=== PATIENT | female | born 1980 | race African-American/Black ===

== ENCOUNTER 2017-10-04 09:54 | Emergency (ER) | payer MEDICAID ==
[~2017-10-04] VITALS: Ht 149.9 cm; Wt 102.3 kg
[~2017-10-04 09:54] MED LIST: CHLO25CA10 PO; CYCL-1 PO; NAPR500T4 PO; ONDA4TAB6 PO
[2017-10-04 12:00] VITALS: BP 143/81
== END 2017-10-04 12:02 | disposition home or self-care (01) ==
LOC: ER 09:55
DX: M25.562 Pain in left knee (principal); F12.10 Cannabis abuse, uncomplicated; F15.10 Other stimulant abuse, uncomplicated
CPT/HCPCS: 93971; 99284

== ENCOUNTER 2017-11-03 00:22 | Emergency (ER) | payer MEDICAID ==
[~2017-11-03] VITALS: Ht 149.9 cm; Wt 103.8 kg
[2017-11-03 01:23] LABS: CLARITY,URINE CLEAR (Clear); COLOR,URINE YELLOW (Yellow); GLUCOSE, URINE NEGATIVE (Neg); KETONES,URINE NEGATIVE (Neg); LEUKOCYTE ESTERASE ,URINE NEGATIVE (Neg); NITRITES, URINE NEGATIVE (Neg); OCCULT BLOOD,URINE SMALL (Neg); PROTEIN,URINE NEGATIVE (Neg); UROBILINOGEN,URINE 0.2 E.U/dL (0.2-1.0)
[2017-11-03] MEDS ORDERED: IBUP-1985 PO (01:23)
[2017-11-03 01:24] LABS: URINE HCG NEGATIVE (NEG)
[2017-11-03 01:25] LABS: UA COLLECTION TYPE VOIDED
[2017-11-03] MEDS ORDERED: ibuprofen 200mg tablet PO ONE (01:30)
[2017-11-03 01:31] LABS: BACTERIA,URINE FEW /HPF (Neg); MUCUS STRANDS FEW /LPF (Neg); SQUAMOUS EPITHELIAL CELL,UR FEW /LPF (FEW); WBC,URINE 0-4 /HPF (0-4)
[2017-11-03 01:47] VITALS: BP 108/63
== END 2017-11-03 01:48 | disposition home or self-care (01) ==
LOC: ER 00:22
DX: R07.89 Other chest pain (principal); R10.84 Generalized abdominal pain; F17.200 Nicotine dependence, unspecified, uncomplicated; F12.10 Cannabis abuse, uncomplicated; F15.10 Other stimulant abuse, uncomplicated; Z87.442 Personal history of urinary calculi; Z56.0 Unemployment, unspecified; Z98.890 Other specified postprocedural states
CPT/HCPCS: 71046; 81001; 81025; 93005; 99285

== ENCOUNTER 2021-06-06 21:12 | Emergency (ER) | payer MEDICAID ==
[~2021-06-06] VITALS: Ht 149.9 cm; Wt 79.5 kg
[~2021-06-06 21:12] MED LIST changes: +IBUP-1985 PO; +NAPR-996 PO; -NAPR500T4 PO
[2021-06-06 21:35] VITALS: BP 129/84
[2021-06-06 22:07] LABS: URINE HCG NEGATIVE (NEG)
[2021-06-06 22:14] LABS: CLARITY,URINE Cloudy (Clear); COLOR,URINE DARK YELLOW (Yellow); GLUCOSE, URINE NEGATIVE (Neg); KETONES,URINE NEGATIVE (Neg); LEUKOCYTE ESTERASE ,URINE SMALL (Neg); NITRITES, URINE NEGATIVE (Neg); OCCULT BLOOD,URINE MODERATE (Neg); PROTEIN,URINE NEGATIVE (Neg); UA COLLECTION TYPE CLN CATCH MIDSTREAM; UROBILINOGEN,URINE 0.2 E.U/dL (0.2-1.0)
[2021-06-06] MEDS ORDERED: normal saline 1000ML IV soln IVB ONE (22:40)
[2021-06-06] MEDS ORDERED: ondansetron/PF 4mg/2ml inj IV ONE (22:40)
[2021-06-06] MEDS ORDERED: ketorolac trometh. 30mg/ml inj. IV ONE (22:40)
[2021-06-06 22:48] LABS: BACTERIA,URINE 1+ /HPF (Neg); MUCUS STRANDS MANY /LPF (Neg); SQUAMOUS EPITHELIAL CELL,UR MANY /LPF (FEW)
[2021-06-06 22:49] LABS: CAL OXALATE CRYSTALS 3+ /HPF (NEGATIVE)
== END 2021-06-06 23:48 | disposition left against medical advice (07) ==
LOC: ER 21:13
DX: M54.5 Low back pain (principal); Z53.21 Procedure and treatment not carried out due to patient leaving prior to being seen by health care provider
CPT/HCPCS: 81001; 81025